=== PATIENT | female | born 1950 | race Caucasian/White ===

== ENCOUNTER 2025-05-30 19:21 | Emergency (ER) | payer MEDICARE, OTHER, SELFPAY ==
[2025-05-30 19:24] VITALS: BP 156/61; PULSE 94; RESP 18; TEMP 35.7; O2SAT 95
--- NOTE | 2025-05-30 19:45 | RAD_ITS ---
EXAM: Left tibia and fibula radiographs two views. CLINICAL HISTORY: Fall COMPARISON: None TECHNIQUE: Frontal and lateral views of the left tibia and fibula. FINDINGS: Osseous: There is acute, comminuted slightly displaced fracture through the proximal fibular diaphysis. Proximal tibiofibular congruency is maintained. If there are symptoms related to the knee or ankle joint dedicated joint views are advised. There is mild medial subluxation of the tibial plafond with respect to the talar dome resulting in slight widening of the proximal medial right ankle gutter. There is a transverse fracture through the medial malleolus. There is intra-articular fracture suspected through the posterior malleolus of the distal tibia. The ankle is not well evaluated on these views. Soft tissues: Soft tissue injury is not well assessed by this technique. RAD/Tibia & Fibula 2 Views IMPRESSION: Proximal fibular fractures and distal tibial fractures with subluxation of the ankle mortise as discussed above. Reading Location: [id number]
--- NOTE | 2025-05-30 19:45 | RAD_ITS ---
PROCEDURE: ANKLE MIN 3 VIEWS 05/30/2025 REASON FOR EXAM: PAIN TECHNIQUE: Procedure Code: RADANK Modality: DX Procedure: ANKLE MIN 3 VIEWS Laterality: Left COMPARISON: None FINDINGS: Osseous: There is slight widening of the distal tibiofibular joint space. There is transverse complete fracture through the medial malleolus. There is slight medial subluxation of the tibial plafond with respect to the talar dome resulting in asymmetric widening of the medial ankle gutter proximally. Suspected intra-articular fracture through the posterior malleolus is not well assessed radiographically. This could be better confirmed by CT if indicated. No subchondral defect is seen at the talar dome. No acute distal fibular fracture seen. Soft tissues: There is soft tissue swelling around the ankle slightly greater medially. Soft tissue injury is not well assessed by this technique. RAD/Ankle min 3 Views IMPRESSION: Ankle fracture subluxation as discussed above. Reading Location: [id number]
[2025-05-30] MEDS: HYDROcodone Bitartrate/Apap 5/325 Tablet PO ×2 (19:47→22:06)
--- NOTE | 2025-05-30 19:55 | EX.ED.DYSGE1 ---
HPI History of Present Illness Chief Complaint: Lower Extremity Injury Narrative Narrative: Chief complaint and HPI: 75-year-old female with no significant past medical history presents for evaluation of left ankle pain. Patient states that she had a fall down 5 steps earlier today in which she twisted her left ankle. States she had some mild swelling and pain. States the pain and swelling have significantly wors[place] States the pain radiates into her mid calf. She denies any numbness or tingling. Denies any foot pain. Review of systems: See HPI Medications: As listed on the chart Allergies: As listed on the chart PFSH: Per chart Vital signs: As listed on the chart. Reviewed. Physical exam: Gen: A&O x3, NAD Head: Normocephalic, atraumatic Eyes: No sclera icterus, conjunctiva clear ENT: Moist mucous membranes CV: Regular rate Resp: Nonlabored respirations Musc: Full ROM except for mildly limited in the left ankle secondary to pain, no deformity, swelling and ecchymosis to the left ankle diffusely, tender to palpation to the left ankle diffusely, compartments soft, good capillary refill, DP/PT pulses +2 bilaterally, knee without tenderness or instability, Achilles tendon intact, foot/calcaneus nontender to palpation, sensation intact, Skin: Warm, dry Neuro: Alert, oriented, grossly intact Psych: Cooperative, appropriate mood and affect [facility] Medical History (Updated 05/30/25 @ 22:[address] Villa Swan, DO) Ankle fracture Heart attack Stroke Cholecystitis Home Medications ?Medication ?Instructions ?Recorded ?Last Taken ?Type ondansetron 4 mg disintegrating 4 mg PO Q8H PRN PRN Nausea #10 tabs 05/30/25 Unknown Rx tablet oxycodone 5 mg capsule 5 mg PO Q6H PRN pain 3 days #12 05/30/25 Unknown Rx caps Allergy/AdvReac Type Severity Reaction Status Date / Time iodine Allergy Mild hives Verified 05/30/25 19:23 Penicillins (PCN) Allergy Mild Hives Verified 05/30/25 19:23 Sulfa (Sulfonamide Allergy Mild hives Verified 05/30/25 19:23 Antibiotics) Surgical History (Updated 05/30/25 @ 19:56 by Maricruz Quinones) History of heart artery stent H/O: hysterectomy Hx of cholecystectomy Social History Smoking Status: Current every day smoker tobacco type: cigarettes EXAM Physical Exam Const Vital Signs: 05/30/25 19:24 Temperature 96.3 F L Temperature Source Temporal Pulse Rate 94 Respiratory Rate 18 Blood Pressure 156/61 H Blood Pressure Mean 92 Pulse Ox 95 Oxygen Delivery Method Room Air MDM MDM MDM Narrative Medical decision making narrative: 75-year-old female with no significant past medical history presents for evaluation of left ankle pain. Patient states that she had a fall down 5 steps earlier today in which she twisted her left ankle. States she had some mild swelling and pain. States the pain and swelling have significantly wors[place] See physical exam findings. Differential diagnosis includes but is not limited to left ankle sprain, left ankle fracture. Atco ordered for pain. X-ray of the ankle and tib-fib ordered. X-ray of the ankle and to the last visit were personally reviewed and interpreted by me, ED physician. Patient has a proximal fibular fracture and medial malleolus fracture. Radiology in agreement. Per radiology there is slight widening of the distal talofibular joint space. There is slight medial subluxation of the tibial plate found with respect to the talar dome resulting in asymmetric widening of the medial ankle gutter approximately. Suspect intra-articular fracture to the posterior malleolus but not well assessed. Given the question a posterior malleolus fracture, I did consult orthopedic surgery and spoke to Dr. Velazquez. He reviewed the imaging. He recommend CT ankle but okay with splint and discharge home with follow-up outpatient. Given patient has the proximal fibula fracture I did discuss which splint he would like placed. He agrees with posterior/sugar-tong ankle splint. Patient tolerated splint placement well. She was educated that she is nonweightbearing on that extremity and that it cannot get wet. Crutches ordered. Follow-up x-ray ordered after splint placement with CT lower extremity. Repeat x-ray after splint placement shows improvement of anatomic alignment. Radiology in agreement. There is a posterior malleolus fracture. CT abdomen pelvis shows mild acute impaction fracture suspected involving the posterior aspect of the medial tibial plateau with associated incompletely imaged hemorrhagic knee joint effusion possibly with lipo hemarthrosis extending above the level of imaging. Segmental comminuted displaced proximal fibula shaft fractures. Small cortical avulsion fractures off the anterior aspect of the distal fibula at the level of the distal tibiofibular ligament or anterior talofibular ligament. Intra-articular fractures of the medial malleolus and posterior malleolus. Given patient now has a tibial plateau fracture, will reach back out to Dr. Velazquez. Patient was discussed with Dr. Deng. Agrees with knee immobilizer with splint. Follow-up outpatient. Patient updated on the results confirmed understand the plan. Patient stable to discharge. Joint Reduction/splint placement Indication: Left ankle fracture Consent: Risks, benefits, and alternatives discussed with patient and consent obtained Procedure: The patient was Atco for pain. The subluxation/fracture was reduced to the best of my abilities utilizing traction. Following reduction, immobilization was performed using splint sleeve, Webril, Ortho-Glass, and Axel bandages in a posterior/sugar-tong splint. The extremity's neurovascular status was re-checked and was unchanged from the pre-procedure exam. The patient tolerated the procedure without complications. Impression: 1. Distal tibia fracture 2. Proximal fibula fracture 3. Fall down steps Radiography Diagnostic Testing: Clinical Impression(s) from Imaging Studies Ankle X-Ray 05/30/25 19:45 IMPRESSION: Ankle fracture subluxation as discussed above. Reading Location: [facility] Tibia/Fibula X-Ray 05/30/25 19:45 IMPRESSION: Proximal fibular fractures and distal tibial fractures with subluxation of the ankle mortise as discussed above. Reading Location: [facility] Lower Extremity CT 05/30/25 22:01 IMPRESSION: Mild acute impaction fracture suspected involving the posterior aspect of the medial tibial plateau with associated incompletely imaged hemorrhagic knee joint effusion possibly with lipohemarthrosis extending above the level of imaging. - Segmental comminuted displaced proximal fibular shaft fractures. Small cortical avulsion fractures off the anterior aspect of the distal fibula at the level of the distal tibiofibular ligament or anterior talofibular ligament. - Intra-articular fractures of the medial malleolus and posterior malleolus. - Soft tissue swelling as discussed above. - Other findings discussed above in detail. Reading Location: [facility] Ankle X-Ray 05/30/25 22:20 IMPRESSION: More anatomic alignment postreduction. - Findings discussed above in detail. Reading Location: [id number] Discharge Plan Triage Chief Complaint: Lower Extremity Injury ED Provider: Villa Swan Dx/Rx/DC Orders Clinical Impression: Ankle fracture, Fracture of fibula, proximal Instructions: Splint Care, Understanding Compartment Syndrome, ED Ankle Fracture, ED Leg Fracture Prescriptions: New oxycodone 5 mg capsule 5 mg PO Q6H PRN (Reason: pain) 3 Days Qty: 12 0RF ondansetron 4 mg tablet,disintegrating 4 mg PO Q8H PRN PRN (Reason: Nausea) Qty: 10 0RF Primary Care Provider: TYREL KIM Referrals: Armin Velazquez MD [Med Staff - Active Staff] - 3-5 Days Activity Restrictions/Additional Instructions: Follow-up with orthopedic surgeon. Call make an appointment. Recommend Tylenol and Motrin as needed for pain. Narcotics for severe pain. Narcotics can increase constipation as well as falls and confusion. Recommend [id number] stool softener such as MiraLAX. You are nonweightbearing on your left lower extremity. Ambulate with crutches. Splint cannot get wet. Splint must remain on at all times. Monitor for signs of compartment syndrome. Print Language: Guyanese Disposition Disposition: Home, Self Care
[2025-05-30 19:57] VITALS: BMI 28.8
--- NOTE | 2025-05-30 21:11 | CON.PCM.OR_ITS ---
HPI Consult Data Date of Consult: 05/30/25 HPI Narrative HPI Narrative: ROGERS LEIJA, is a 75 F who presents with a Maisonneuve ankle fracture. [facility]LY [facility] Medical History (Updated 05/30/25 @ 21:12 by Armin Velazquez MD) Ankle fracture Heart attack Stroke Cholecystitis Allergy/AdvReac Type Severity Reaction Status Date / Time iodine Allergy Mild hives Verified 05/30/25 19:23 Penicillins (PCN) Allergy Mild Hives Verified 05/30/25 19:23 Sulfa (Sulfonamide Allergy Mild hives Verified 05/30/25 19:23 Antibiotics) Surgical History (Updated 05/30/25 @ 19:56 by Maricruz Quinones) History of heart artery stent H/O: hysterectomy Hx of cholecystectomy Social History Smoking Status: Current every day smoker tobacco type: cigarettes Vital Signs Vital Signs Vital Signs: 05/30/25 19:24 Temperature 96.3 F L Temperature Source Temporal Pulse Rate 94 Respiratory Rate 18 Blood Pressure 156/61 H Blood Pressure Mean 92 Pulse Ox 95 Oxygen Delivery Method Room Air Weight Weight: 165 lb 5.547 oz Body Mass Index (BMI) 28.8 Imaging Radiology Impression Ankle X-Ray 05/30/25 19:45 IMPRESSION: Ankle fracture subluxation as discussed above. Reading Location: [id number] Tibia/Fibula X-Ray 05/30/25 19:45 IMPRESSION: Proximal fibular fractures and distal tibial fractures with subluxation of the ankle mortise as discussed above. Reading Location: [id number] Assessment & Plan Assessment/Plan (1) Ankle fracture: PLAN: 75 F with Maisonneuve ankle fracture. these are typically unstable, so recommend splint, CT scan for planning, and outpatient follow up, NWB and crutches. Provider understood, no further questions or concerns.
--- NOTE | 2025-05-30 22:01 | CT_ITS ---
PROCEDURE: EXTREMITY LOWER WITHOUT CONTRA 05/30/2025 REASON FOR EXAM: PROXIMAL FIBULA FRACTURE, DISTAL TIBIA FRACTURE TECHNIQUE: Procedure Code: CTELWO Modality: CT Procedure: EXTREMITY LOWER WITHOUT CONTRA Coronal and Sagittal reconstruction series were provided. One or more dose reduction techniques were used (e.g., Automated exposure control, adjustment of the mA and/or kV according to patient size, use of iterative reconstruction technique). RADIATION DOSE SUMMARY: CTDlvol: 15.35 mGy DLP: 795.11 mGycm COMPARISON: Same day tibia/fibular radiographs FINDINGS: Osseous: The entire knee region is not included on this exam. Incompletely imaged, there is moderately large visualized complex knee joint effusion with attenuation of fluid up to 36 Hounsfield units consistent with hemorrhagic effusion. There may be layering fat within the knee joint effusion, incompletely imaged. This would indicate an intra-articular injury. There is mild suspected impaction fracture involving a 9 mm segment of the posterior aspect medial tibial plateau (image 23 and image 24 sagittal reconstructions), collectively, most consistent with acute tibial plateau fracture. No additional acute fracture or malalignment is seen at the knee joint. Mild osteoarthritic changes and joint space loss noted at the femorotibial joint. There is segmental comminuted slightly displaced fracture involving the proximal fibular shaft over a length of 4.4 cm. Proximal tibiofibular congruency is maintained. Distal tibiofibular congruency is maintained. Small acute cortical fracture is suspected off the distal anterior fibula are seen in the region of the distal anterior tibiofibular ligament and/or talofibular ligament. The ankle mortise is symmetric. Transverse intra-articular medial malleolar fracture noted with fracture extending into the medial ankle gutter. There is a 3.3 by 2.9 cm comminuted intra-articular fracture involving the posterior malleolus of the distal tibia. This fracture is slightly comminuted and minimally displaced. This fracture extends into the tibiotalar joint as well as the distal tibiofibular joint. No subchondral defect is seen at the talar dome. Small subchondral lesion noted centrally at the talar dome, most likely a bone island. Subtalar alignment is anatomic. Calcaneal height is preserved. No additional acute osseous injury or malalignment seen. Soft tissues: Evaluation for soft tissue injury is suboptimal by this technique. Mild soft tissue swelling is seen at the level of the knee joint and proximal tibia. Soft tissue swelling seen circumferentially around the ankle slightly greater medially. Soft tissue swelling extends below the ankle into the foot. No soft tissue emphysema is seen. Vasculature: Vascular calcifications noted. Vascular patency or injury can not be assessed by this study. CT/Extremity Lower without Contra IMPRESSION: Mild acute impaction fracture suspected involving the posterior aspect of the m edial tibial plateau with associated incompletely imaged hemorrhagic knee joint effusion possibly with lipohemarthrosis extending above the level of imaging. - Segmental comminuted displaced proximal fibular shaft fractures. Small cortical avulsion fractures off the anterior aspect of the distal fibula at the level of the distal tibiofibular ligament or anterior talofibular ligament. - Intra-articular fractures of the medial malleolus and posterior malleolus. - Soft tissue swelling as discussed above. - Other findings discussed above in detail. Reading Location: [id number]
--- NOTE | 2025-05-30 22:20 | RAD_ITS ---
PROCEDURE: ANKLE MIN 3 VIEWS 05/30/2025 REASON FOR EXAM: SPLINT PLACEMENT TECHNIQUE: Procedure Code: RADANK Modality: DX Procedure: ANKLE MIN 3 VIEWS Laterality: Left COMPARISON: Left tibia and fibula radiographs May 30, 2025 FINDINGS: Osseous: Fine detail evaluation is compromised by overlying cast material. Distal tibiofibular congruency appears more anatomic than on the prior study. There has been slight reduction of previously seen subluxed ankle mortise and medial malleolar fracture. The ankle mortise appears near anatomic now. Posterior malleolar intra-articular distal tibial fracture is better visualized on the current study. Soft tissues: Soft tissue evaluation is limited by this technique. There is soft tissue swelling around the ankle slightly greater medially. RAD/Ankle min 3 Views IMPRESSION: More anatomic alignment postreduction. - Findings discussed above in detail. Reading Location: [id number]
[2025-05-30 23:23] VITALS: BP 135/77; PULSE 77; RESP 16; TEMP 36.7; O2SAT 98
== END 2025-05-30 23:27 | disposition home or self-care (01) ==
PROVIDERS: Emergency Provider Surgery; PCP Internal Medicine Cardiovascular Disease; Visit Provider Surgery
DX: S82.452A Displaced comminuted fracture of shaft of left fibula, initial encounter for closed fracture (principal); Z90.710 Acquired absence of both cervix and uterus; F17.210 Nicotine dependence, cigarettes, uncomplicated; W10.9XXA Fall (on) (from) unspecified stairs and steps, initial encounter; Z86.73 Personal history of transient ischemic attack (TIA), and cerebral infarction without residual deficits; I25.2 Old myocardial infarction; Z90.49 Acquired absence of other specified parts of digestive tract; Z95.5 Presence of coronary angioplasty implant and graft; S82.142A Displaced bicondylar fracture of left tibia, initial encounter for closed fracture
CPT/HCPCS: 27781; 73590; 73610; 73700; 99285